=== PATIENT | female | born 1975 | race African-American/Black ===

== ENCOUNTER 2022-05-22 12:37 | Emergency (ER) | payer BC, MEDICAID ==
[~2022-05-22] VITALS: Ht 167.6 cm; Wt 81.0 kg
[~2022-05-22 12:37] MED LIST: IBUP100T35; VIC
[2022-05-22 12:59] VITALS: BP 138/69
== END 2022-05-22 17:12 | disposition left against medical advice (07) ==
LOC: ER 12:37
DX: Z53.21 Procedure and treatment not carried out due to patient leaving prior to being seen by health care provider (principal)